=== PATIENT | male | born 1960 | race Caucasian/White ===

== ENCOUNTER → 2016-08-06 | Outpatient (CLI) | payer BC, OTHER ==
[~2016-08-06] MED LIST: ABL/5 PO; ALBUAER2 INH; DIPH25TA24 PO; FRS/40 PO; HYDR-3983 PO; LAMO200T38 PO; SENN-63 PO; SIMV20TA2 PO; SPIR50TA3 PO
[2016-08-06 12:21] LABS: BASO % 0.4 %; BASO ABS # 0.02 K/uL (0-0.2); COMPLETE YES; IG% 0.4 %; LYMPH % 29.5 %; LYMPH ABS # 1.65 K/uL (1.2-3.4); MEAN CELL VOLUME 94.7 fL (80-100); MEAN CORPUSCULAR HEMOGLOBIN 32.5 pg (25-34); MEAN CORPUSCULAR HGB CONC 34.3 g/dl (32-36); MEAN PLATELET VOLUME 9.1 fL (7.4-10.4); MONO % 4.5 %; NEUT % 65.2 %; PLATELET COUNT 227 K/uL (130-400); RED BLOOD COUNT 4.86 M/uL (4.7-6.1); WHITE BLOOD COUNT 5.59 K/uL (4.8-10.8)
[2016-08-06 12:44] LABS: ALKALINE PHOSPHATASE 78 U/L (45-117); ALT/SGPT 43 U/L (12-78); AST/SGOT 17 U/L (15-37); BLOOD UREA NITROGEN 7 mg/dl (7-18); BUN/CREATININE RATIO 8.8 (10-20); CALCIUM 8.8 mg/dl (8.5-10.1); CARBON DIOXIDE 29 mmol/L (21-32); CHLORIDE 105 mmol/L (98-107); CHOLESTEROL 182 mg/dl (0-200); CHOLESTEROL/HDL RATIO 4.3; CREATININE 0.84 mg/dl (0.60-1.40); GLUCOSE 109 mg/dl (70-99); HDL CHOLESTEROL 42 mg/dl; LDL CHOLESTEROL CALCULATED 105 mg/dl; SODIUM 141 mmol/L (136-145); TRIGLYCERIDES 174 mg/dl (0-150); VERY LOW DENSITY LIPOPROT CALC 35 mg/dl
[2016-08-06 12:54] LABS: THYROID STIMULATING HORMONE 0.758 uIu/ml (0.300-4.500)
[2016-08-06 13:55] LABS: BENZODIAZEPINE, URINE NEG (NEG); COCAINE,URINE NEG (NEG); PHENCYCLIDINE, URINE NEG (NEG)
[2016-08-10 11:14] LABS: COD UR NEGATIVE NG/ML (CUTOFF=50); HYDROCOD UR 160 NG/ML (CUTOFF=50); HYDROMOR UR NEGATIVE NG/ML (CUTOFF=50); MORPHINE UR NEGATIVE NG/ML (CUTOFF=50); NORHYDROCODONE CONF UR 459 NG/ML (CUTOFF=50); OXYMORPH UR NEGATIVE NG/ML (CUTOFF=50)
== END | disposition home or self-care (01) ==
LOC: C.LAB1850 10:53
PROVIDERS: ATTEND Family Medicine
DX: I10 Essential (primary) hypertension (principal); E78.00 Pure hypercholesterolemia, unspecified; Z11.59 Encounter for screening for other viral diseases; Z51.81 Encounter for therapeutic drug level monitoring; R53.83 Other fatigue

== ENCOUNTER → 2017-08-05 | Outpatient (CLI) | payer BC, OTHER ==
[~2017-08-05] MED LIST changes: +BUSPAR PO; +DIPH25CA5 PO; +FLUO20CA35 PO; +HYDR-3714 PO; +LAMO200T35 PO; -LAMO200T38 PO; +VNTHFA/IN INH
[2017-08-05 13:07] LABS: BASO % 0.4 %; BASO ABS # 0.03 K/uL (0-0.2); HEMATOCRIT 45.1 % (42-52); IG# 0.02 K/uL (0.00-0.02); LYMPH % 26.5 %; LYMPH ABS # 1.81 K/uL (1.2-3.4); MEAN CELL VOLUME 96.4 fL (80-100); MEAN CORPUSCULAR HEMOGLOBIN 32.1 pg (25-34); MEAN CORPUSCULAR HGB CONC 33.3 g/dl (32-36); MONO % 4.5 %; MONO ABS # 0.31 K/uL (0.11-0.59); NEUT % 68.3 %; NEUT ABS # 4.66 K/uL (1.4-6.5); PLATELET COUNT 232 K/uL (130-400); RED CELL DISTRIBUTION WIDTH CV 13.9 % (11.5-14.5); RED CELL DISTRIBUTION WIDTH SD 48.9 fL (36.4-46.3); WHITE BLOOD COUNT 6.83 K/uL (4.8-10.8)
[2017-08-05 13:36] LABS: BLOOD UREA NITROGEN 11 mg/dl (7-18); CALCIUM 8.6 mg/dl (8.5-10.1); CARBON DIOXIDE 31 mmol/L (21-32); CREATININE 1.02 mg/dl (0.60-1.40); GLUCOSE 94 mg/dl (70-99); POTASSIUM 3.9 mmol/L (3.5-5.1); SODIUM 139 mmol/L (136-145)
== END | disposition home or self-care (01) ==
LOC: C.LAB 12:02
PROVIDERS: ATTEND Surgery
DX: Z01.812 Encounter for preprocedural laboratory examination (principal); K42.9 Umbilical hernia without obstruction or gangrene

== ENCOUNTER → 2017-08-12 | Day surgery (SDC) | payer BC, OTHER ==
[2017-08-06 11:24] VITALS: BMI 43.0
[~2017-08-12] VITALS: Ht 172.7 cm; Wt 128.0 kg
[~2017-08-12] MED LIST changes: -ALBUAER2 INH; +ATROPINE SULFATE 0.1 MG/ML 5ML SYR IV PRN; +BUPIVACAINE/EPINEPHRINE 0.5% MPF 1:200,000 30 ML VIAL ONE; +CEFAZOLIN 3000MG IV PUSH 22.5 ML IV SCH; +DEXAMETHASONE SOD INJ 4 MG/ML VIAL ONE; -DIPH25TA24 PO; +EpHEDrine SULFATE INJ 50 MG/ML AMP IV PRN; +FENTANYL CITRATE INJ 50 MCG/1 ML 2 ML VIAL ONE; +GLYCOPYRROLATE INJ 0.2 MG/ML VIAL ONE; +HYDROCODONE/ACETAMIN 5/325MG TAB PO PRN; +HYDROmorphone INJ 1 MG/ML SYR IV PRN; +KETOROLAC TROMETHAMINE 30 MG/ML VIAL IV. PRN; +KETOROLAC TROMETHAMINE 30 MG/ML VIAL ONE; +LACTATED RINGER'S 1000ML 1,000 ML IV SCH; +LIDOCAINE HCL 2% 2 ML VIAL (20MG/ML) ONE; +MIDAZOLAM HCL 1 MG/ML 2ML VIAL ONE; +MoRPHine SULFATE 2 MG/ML CARP IV PRN; +MoRPHine SULFATE 4 MG/ML 1 ML CARP\\VIAL IV PRN; +NEOSTIGMINE METHYLSULFATE 5 MG/5 ML SYR ONE; +ONDANSETRON INJ 2 MG/ML 2 ML VIAL IV PRN; +ONDANSETRON INJ 2 MG/ML 2 ML VIAL ONE; +PHENYLEPHRINE 100MCG/ML 5ML SYR ONE; +PROPOFOL IV EMULSION 10 MG/ML 20 ML VIAL IV ONE; +ROCURONIUM BROMIDE 10 MG/ML 5 ML VIAL IV ONE; -SPIR50TA3 PO
[2017-08-12 06:03] VITALS: BP 143/87; PULSE 72; TEMP 36.7; O2SAT 92; Ht 172.7 cm; Wt 128.0 kg
--- NOTE | 2017-08-12 07:02 | History & Physical Bridge Note ---
H&P Re-Evaluation Bridge Note: I have examined the patient, reviewed the History & Physical and in the interval since the performance of the History & Physical I have noted the following changes of clinical significance: No changes noted
--- NOTE | 2017-08-12 08:06 | [facility] Operative Report ---
Operative Report Operative Date Aug 12, 2017. Pre-Operative Diagnosis Umbilical Hernia Post-Operative Diagnosis Umbilical Hernia Procedure(s) Performed Open Umbilical Hernia Repair; enterolysis Surgeon Dr. Dai Egg Setter Surgeon(s) BASIA Roth Estimated Blood Loss 10ml Specimens none per surgeon Anesthesia Type General Complication(s) none Description of Procedure After informed consent was obtained the patient was taken the operating room and placed in supine position. After successful placement of the laryngeal mask airway the abdomen was shaved and sterilely prepped and draped in usual fashion. An infraumbilical incision was made with a 15 blade scalpel and carried down through the soft tissue using electrocautery. Once we were down to the fascia I then used a Suly clamp to come around the superior aspect of the umbilicus. We then detached the umbilical stalk revealing approximately 2 cm fascial defect with some omental incarceration. I excised the sac and then used electrocautery and blunt dissection to take down adhesions to the undersurface of the fascia which included some small bowel and omentum. Several small bleeding points were controlled using electrocautery. Once I was able to dunk this back in the abdominal cavity this left discrete fascial edges. Because his abdominal wall was so thin I opted to not use mesh. I used #1 Ethibond in interrupted [id number] fashion to primarily close the defect. Once it was closed it was relatively tension-free. I thoroughly irrigated the wound. I reattach the umbilical stalk to the fascia using 0 Vicryl. Deep layers were then closed using 3-0 Vicryl and skin was closed using 4-0 Monocryl. Marcaine was injected around the incision for postoperative analgesia and a sterile dressing was applied. The patient was awaken x-rayed and transferred to recovery in stable condition. My physician accounts receivable assistant was present through the entire case. He helps prep the patient. He helped with wound retraction throughout the case. He also helped with wound closure and dressing placement. I attest to the content of the Intraoperative Record and any orders documented therein. Any exceptions are noted below.
--- NOTE | 2017-08-12 08:25 | Discharge Instructions ---
Discharge Instructions Date of Service Aug 12, 2017. Visit Reason for Visit: Umbilical Hernia Discharge Discharge Diagnosis / Problem: umbilical hernia repair Discharge Goals Goal(s): Decrease discomfort Activity Recommendations Activity Limitations: as noted below Lifting Limitations: no more than 10 pounds Shower/Bathe: no limitations Driving or Machine Use: resume 3 days after discharge Anesthesia . Post Anesthesia Instructions: If you have had General Anesthesia or IV Sedation: * Do not drive today. * Resume driving when surgeon permits. * Do not make important decisions or sign legal documents today. * Call surgeon for: 1. Temperature elevations greater than 101 degrees F. 2. Uncontrollable pain. 3. Excessive bleeding. 4. Persistent nausea and vomiting. 5. Medication intolerance (nausea, vomiting or rash). * For nausea and vomiting use only clear liquids such as: tea, soda, bouillon until nausea subsides, then gradually increase diet as tolerated. * If you have any concerns or questions, call your surgeon's office. If physician is unavailable and it is an emergency, call 911 or go to the nearest emergency room. . Instructions / Follow-Up Instructions / Follow-Up Dr. Dai in 1-2 weeks as planned, call [phone] if you do not already have an appt or have any questions Your bandage is waterproof, you can leave it on to shower and remove it on Thursday Diet Recommendations Recommended Home Diet: no limitations Procedures Procedures Performed: Open Umbilical Hernia Repair; enterolysis Pending Studies Studies pending at discharge: no Medical Emergencies . Who to Call and When: Medical Emergencies: If at any time you feel your situation is an emergency, please call 911 immediately. . Non-Emergent Contact Non-Emergency issues call your: Surgeon Call Non-Emergent contact if: you have a fever, temperature is above 101.5, your pain is not controlled, wound has increased redness, you have any medication questions . . "Provider Documentation" section prepared by Shaka Valencia. .
[2017-08-12] MEDS: FENTANYL CITRATE INJ 50 MCG/1 ML 2 ML VIAL IV PRN ×2 (08:36→08:44)
[2017-08-12 09:10] VITALS: BP 119/65; PULSE 78; TEMP 36.9; O2SAT 92
[2017-08-12 09:40] VITALS: BP 112/60; PULSE 79; TEMP 36.9; O2SAT 96
[2017-08-12 10:10] VITALS: BP 112/60; PULSE 78; TEMP 36.9; O2SAT 96
--- NOTE | 2017-08-12 10:10 | Anesthesiology Progress Note ---
Anesthesia Post Op Note Date & Time Aug 12, 2017 at 10:10 Vital Signs Pain Intensity: 2 Vital Signs Past 12 Hours Date Time Temp Pulse Resp B/P (MAP) Pulse Ox O2 Delivery O2 Flow Rate FiO2 08/12/17 09:10 36.9 78 20 119/65 92 Room Air Nasal Cannula 08/12/17 08:57 76 15 91 08/12/17 08:57 75 15 08/12/17 08:56 124/80 08/12/17 08:52 77 18 94 08/12/17 08:52 77 18 08/12/17 08:51 37.0 77 17 127/84 (101) 94 Nasal Cannula 2 08/12/17 08:51 127/84 08/12/17 08:47 80 22 90 08/12/17 08:47 80 22 08/12/17 08:46 131/80 08/12/17 08:42 76 23 08/12/17 08:42 76 23 96 08/12/17 08:41 79 23 136/84 95 08/12/17 08:41 79 23 08/12/17 08:36 83 18 132/81 95 08/12/17 08:36 81 18 08/12/17 08:31 81 16 08/12/17 08:31 80 16 125/74 97 08/12/17 08:26 90 26 08/12/17 08:26 90 26 146/87 96 08/12/17 08:22 143/101 08/12/17 08:21 96 28 08/12/17 08:21 36.8 93 18 143/101 (106) 94 Oxymask 10 08/12/17 08:21 96 28 90 08/12/17 06:03 36.7 72 16 143/87 (105) 92 Room Air Notes Mental Status: alert / awake / arousable, participated in evaluation Pt Amnestic to Procedure: Yes Nausea / Vomiting: adequately controlled Pain: adequately controlled Airway Patency, RR, SpO2: stable & adequate BP & HR: stable & adequate Hydration State: stable & adequate Anesthetic Complications: no major complications apparent
== END | disposition home or self-care (01) ==
LOC: C.ACU 05:34
PROVIDERS: ATTEND Surgery
DX: K42.0 Umbilical hernia with obstruction, without gangrene (principal); M62.08 Separation of muscle (nontraumatic), other site; J45.909 Unspecified asthma, uncomplicated; I10 Essential (primary) hypertension; F17.220 Nicotine dependence, chewing tobacco, uncomplicated; M46.96 Unspecified inflammatory spondylopathy, lumbar region; E78.00 Pure hypercholesterolemia, unspecified; G47.30 Sleep apnea, unspecified; Z83.6 Family history of other diseases of the respiratory system; Z81.8 Family history of other mental and behavioral disorders; Z82.49 Family history of ischemic heart disease and other diseases of the circulatory system; Z79.899 Other long term (current) drug therapy

== ENCOUNTER → 2017-11-16 | Outpatient (CLI) | payer BC, OTHER ==
[~2017-11-16] MED LIST changes: -ATROPINE SULFATE 0.1 MG/ML 5ML SYR IV PRN; -BUPIVACAINE/EPINEPHRINE 0.5% MPF 1:200,000 30 ML VIAL ONE; -CEFAZOLIN 3000MG IV PUSH 22.5 ML IV SCH; -DEXAMETHASONE SOD INJ 4 MG/ML VIAL ONE; -EpHEDrine SULFATE INJ 50 MG/ML AMP IV PRN; -FENTANYL CITRATE INJ 50 MCG/1 ML 2 ML VIAL ONE; -GLYCOPYRROLATE INJ 0.2 MG/ML VIAL ONE; -HYDROCODONE/ACETAMIN 5/325MG TAB PO PRN; -HYDROmorphone INJ 1 MG/ML SYR IV PRN; -KETOROLAC TROMETHAMINE 30 MG/ML VIAL IV. PRN; -KETOROLAC TROMETHAMINE 30 MG/ML VIAL ONE; -LACTATED RINGER'S 1000ML 1,000 ML IV SCH; -LIDOCAINE HCL 2% 2 ML VIAL (20MG/ML) ONE; -MIDAZOLAM HCL 1 MG/ML 2ML VIAL ONE; -MoRPHine SULFATE 2 MG/ML CARP IV PRN; -MoRPHine SULFATE 4 MG/ML 1 ML CARP\\VIAL IV PRN; -NEOSTIGMINE METHYLSULFATE 5 MG/5 ML SYR ONE; -ONDANSETRON INJ 2 MG/ML 2 ML VIAL IV PRN; -ONDANSETRON INJ 2 MG/ML 2 ML VIAL ONE; -PHENYLEPHRINE 100MCG/ML 5ML SYR ONE; -PROPOFOL IV EMULSION 10 MG/ML 20 ML VIAL IV ONE; -ROCURONIUM BROMIDE 10 MG/ML 5 ML VIAL IV ONE
[2017-11-16 10:47] LABS: HEMOGLOBIN A1C 5.4 % (4.5-5.6)
== END | disposition home or self-care (01) ==
LOC: C.LAB1850 09:10
PROVIDERS: ATTEND Neuromusculoskeletal Medicine & OMM
DX: R73.01 Impaired fasting glucose (principal)